=== PATIENT | female | born 1940 | race Two or more races ===

== ENCOUNTER 2024-08-28 15:53 | Inpatient (IN) | payer OTHER ==
[~2024-08-28] VITALS: Ht 152.4 cm; Wt 48.5 kg
[2024-08-28 17:05] LABS: Basophils # (auto) 0.1 10 ^3/uL (0-0.2); Basophils % (auto) 0.7 % (0.0-2.0); Eosinophils # (auto) 0 10 ^3/uL (0-0.8); Eosinophils % (auto) 0.2 % (0.0-7.0); Hematocrit 28.6 % (36.0-46.0); Hemoglobin 9.4 g/dL (12.2-16.2); Lymphocytes # (auto) 1.3 10 ^3/uL (0.4-5.4); Lymphocytes % (auto) 10.8 % (10.0-50.0); Mean Corpuscular Hemoglobin 31.5 pg (28.0-32.0); Mean Corpuscular Volume 95.5 fL (80.0-100.0); Monocytes # (auto) 0.9 10 ^3/uL (0-1.3); Monocytes % (auto) 7.6 % (0.0-12.0); Neutrophils # (auto) 9.8 10 ^3/uL (1.6-8.6); Neutrophils % (auto) 80.7 % (37.0-80.0); Nucleated Red Blood Cells % 0.1 %; Platelet Count (auto) 411 10^3/uL (140-450); Red Blood Cells 2.99 10^6/uL (4.0-5.20); Red Cell Distribution Width 14.8 % (11.8-14.3); White Blood Cell 12.1 10^3/uL (4.4-10.8)
[2024-08-28 17:22] LABS: Alanine Aminotransferase 34 U/L (7-40); Alkaline Phosphatase 79 U/L (46-116); Anion Gap 13 (5-15); Aspartate Aminotransferase 29 U/L (<34); BUN/Creatinine Ratio 22.8 (10.0-20.0); Blood Urea Nitrogen 18 mg/dL (9-23); Calcium 9.7 mg/dL (8.7-10.4); Carbon Dioxide 23 mmol/L (20-31); Chloride 102 mmol/L (98-107); Potassium 3.6 mmol/L (3.5-5.1); Sodium 138 mmol/L (136-145); Total Protein 7.7 g/dL (5.7-8.2)
[2024-08-28 17:23] LABS: Bilirubin, Total 0.4 mg/dL (0.2-1.0)
[2024-08-28 17:25] LABS: Albumin 4.9 g/dL (3.2-4.8); Glucose 115 mg/dL (74-106)
--- NOTE | 2024-08-28 17:25 | DVH ---
CHEST RADIOGRAPH Indication: tachycardia Technique: Single frontal view of the chest was obtained Comparison: None FINDINGS: Lines and Tubes: None Lungs: No focal consolidation. Pleura: No effusion. No pneumothorax. Cardiomediastinal contours: Unremarkable Bones: No acute osseous abnormality. IMPRESSION: 1. No acute cardiopulmonary disease. HS:Y
--- NOTE | 2024-08-28 17:42 | ED.PDOC ---
History of Present Illness HPI Comments 83 years old presents with 2 days of generally feeling unwell. Patient went to her primary care doctor's appointment today and was told she is tachycardic and has a fever. Patient was then sent to the emergency room. Patient reports feeling weak with palpitations and occasional cough. Chief Complaint: General Weakness Time Seen by MD: 15:55 Primary Care Provider: DR RONDON Allergies: Coded Allergies: NO KNOWN ALLERGIES (Unverified , 12/24/13) Mode of Arrival: Ambulatory Past Medical History PAST MEDICAL HISTORY: Denies Surgical History: BTL, Cholecystectomy, SOLDERER TORCH History: No Pertinent SOLDERER TORCH History Family History Family History: Unobtainable Social History Smoker: Non-Smoker Alcohol: Denies ETOH Use Drugs: Denies Drug Use Lives In: Home Physical Exam General Appearance: No Apparent Distress HEENT: Pharynx Normal Neck: Normal Inspection Respiratory: No Respiratory Distress Cardiovascular: Tachycardia Breast Exam: Deferred Gastrointestinal: Non Tender Genitalia: Deferred Pelvic: Deferred Rectal: Deferred Extremities: Non-tender Neurologic: No Motor Deficits Cerebellar Function: NOT DONE Reflexes: NOT DONE Skin: Normal Color Lymphatic: NOT DONE Was a procedure done? Was a procedure done?: No Differential Dx Considerations may include: ACS, viral syndrome, urinary tract infection, pneumonia X-Ray, Labs, Meds, VS Vital Signs Date Time Temp Pulse Resp B/P (MAP) Pulse Ox O2 Delivery O2 Flow Rate FiO2 08/28/24 16:29 98.0 107 16 141/57 (85) 94 98.0 08/28/24 16:19 99 Lab Test 08/28/24 17:37 08/28/24 16:47 08/28/24 16:15 Range/Units Urine Color Dark-yellow Yellow Urine Clarity Turbid H Clear Urine pH 5.5 5.0-9.0 Urine Specific [place] 1.026 1.001-1.035 Urine Protein Trace H Negative Urine Ketones Negative Negative Urine Blood 1+ H Negative /uL Urine Nitrite 2+ H Negative Urine Bilirubin Negative Negative Urine Urobilinogen Normal Negative mg/dL Urine Leukocyte Esterase 2+ Negative /uL Urine RBC 6 0 - 4 /hpf Urine Microscopic WBC 83 H 0-5 /HPF Urine Squamous Epithelial Cells None seen <5 /hpf Urine Bacteria Few H None Seen /hpf Urine Mucus Few None Seen Urine Glucose Normal Normal mg/dL White Blood Count 12.1 H 4.4-10.8 10^3/uL Red Blood Count 2.99 L 4.0-5.20 10^6/uL Hemoglobin 9.4 L 12.2-16.2 g/dL Hematocrit 28.6 L 36.0-46.0 % Mean Corpuscular Volume 95.5 80.0-100.0 fL Mean Corpuscular Hemoglobin 31.5 28.0-32.0 pg Mean Corpuscular Hemoglobin Concent 33.0 32.0-36.0 g/dL Red Cell Distribution Width 14.8 H 11.8-14.3 % Platelet Count 411 140-450 10^3/uL Mean Platelet Volume 7.2 6.9-10.8 fL Neutrophils (%) (Auto) 80.7 H 37.0-80.0 % Lymphocytes (%) (Auto) 10.8 10.0-50.0 % Monocytes (%) (Auto) 7.6 0.0-12.0 % Eosinophils (%) (Auto) 0.2 0.0-7.0 % Basophils (%) (Auto) 0.7 0.0-2.0 % Neutrophils # (Auto) 9.8 H 1.6-8.6 10 ^3/uL Lymphocytes # (Auto) 1.3 0.4-5.4 10 ^3/uL Monocytes # (Auto) 0.9 0-1.3 10 ^3/uL Eosinophils # (Auto) 0 0-0.8 10 ^3/uL Basophils # (Auto) 0.1 0-0.2 10 ^3/uL Nucleated Red Blood Cells 0.1 % Sodium Level 138 136-145 mmol/L Potassium Level 3.6 3.5-5.1 mmol/L Chloride Level 102 98-107 mmol/L Carbon Dioxide Level 23 20-31 mmol/L Anion Gap 13 5-15 Blood Urea Nitrogen 18 9-23 mg/dL Creatinine 0.79 0.550-1.02 mg/dL Glomerular Filtration Rate Calc 74 >90 mL/min BUN/Creatinine Ratio 22.8 H 10.0-20.0 Serum Glucose 115 H 74-106 mg/dL Lactic Acid Level 3.0 *H 0.4-2.0 mmol/L Calcium Level 9.7 8.7-10.4 mg/dL Total Bilirubin 0.4 0.2-1.0 mg/dL Aspartate Amino Transferase (AST) 29 <34 U/L Alanine Aminotransferase (ALT) 34 7-40 U/L Alkaline Phosphatase 79 46-116 U/L Troponin I High Sensitivity 4 </=34 ng/L Total Protein 7.7 5.7-8.2 g/dL Albumin 4.9 H 3.2-4.8 g/dL POC Glucose 117 H 70-106 mg/dl Time of 1ST Reevaluation: 17:41 Reevaluation 1ST: Improved Patient Education/Counseling: Diagnosis, Treatment Family Education/Counseling: No Family Present SEPSIS Sepsis Screen Date sepsis recognized/suspect: Aug 28, 2024 Time Sepsis recognized/suspect: 1621 Recent Procedure: No On Antibiotic Therapy: No Respiratory Rate >20: No Heart Rate >90: Yes Temp<36 C (96.8 F) or >38.3 C: No SBP <90 or MAP <65 mmHG: No New Acute Mental Status Change: No Is the patient on CPAP, BIPAP,: No Orders/Vitals/Labs Physician Orders Chest Portable (08/28/24 16:31) Blood Culture (08/28/24 16:31) Troponin-I Hs (08/28/24 17:31) Troponin-I Hs (08/28/24 19:31) Electrocardigram (08/28/24 16:46) Cefepime 2gm/50ml Ns (Maxipime 2gm/50ml) (08/28/24 17:45) Vancomycin 1gm/200ml Pm (08/28/24 17:45) Vital Signs Date Time Temp Pulse Resp B/P (MAP) Pulse Ox O2 Delivery O2 Flow Rate FiO2 08/28/24 16:29 98.0 107 16 141/57 (85) 94 98.0 08/28/24 16:19 99 Laboratory Tests Test 08/28/24 16:47 Lactic Acid Level 3.0 mmol/L (0.4-2.0) *H White Blood Count 12.1 10^3/uL (4.4-10.8) H Departure 1 Departure Time of Disposition: 17:41 (Patient went tachycardic and concern for sepsis. We will empirically cover patient with antibiotics. We will not give the patient a full fluid bolus as patient has some component of volume overload. We will admit patient for further workup and expert consultation) Impression: Primary Impression: Complicated urinary tract infection Additional Impressions: Tachycardia Generalized weakness Disposition: 09 ADMITTED INPATIENT Admit to: Med Surg Condition: Guarded Critical Care Note Critical Care Time?: Yes Critical care comment: Concern for sepsis Authorized and Performed by: Pauline Goyal MD Total critical care time: Approximately 42 minutes Due to a high probability of clinically significant, life threatening deterioration, the patient required my highest level of preparedness to intervene emergently and I personally spent this critical care time directly and personally managing the patient. This critical care time included obtaining a history; examining the patient; pulse oximetry; ordering and review of studies; arranging urgent treatment with development of a management plan; evaluation of patient's response to treatment; frequent reassessment; and, discussions with other providers. This critical care time was performed to assess and manage the high probability of imminent, life-threatening deterioration that could result in multi-organ failure. It was exclusive of separately billable procedures and treating other patients and teaching time. Please see my other sections and the rest of the note for further information on patient assessment and treatment. Stability Stability form required: No Heart Score Heart Score: Heart Score Response (Comments) Value History N/A 0 EKG N/A 0 Age N/A 0 Risk Factors N/A 0 Troponin N/A 0 Total 0 PAULINE GOYAL MD Aug 28, 2024 17:42
[2024-08-28 17:43] LABS: Urine Bacteria FEW /hpf (None Seen); Urine Blood 1+ /uL (Negative); Urine Clarity Turbid (Clear); Urine Color Dark-Yellow (Yellow); Urine Mucus FEW (None Seen); Urine Protein, UAD TRACE (Negative); Urine Specific Gravity 1.026 (1.001-1.035); Urine Squamous Epithelial Cell None Seen /hpf (<5); Urine Urobilinogen Normal (Negative); Urine WBC 83 /HPF (0-5); Urine pH 5.5 (5.0-9.0)
[2024-08-28 18:01] VITALS: PULSE 98; RESP 23; O2SAT 96
[2024-08-28] MEDS: CEFEPIME 2GM/50ML NS 50 ML IV ONE (18:04)
[2024-08-28] MEDS: SODIUM CHLORIDE 0.9% 1,000 ML IV ONE (18:05)
[2024-08-28] MEDS ORDERED: VANCOMYCIN PER PHARMACY 0 MG IV SCH (18:30)
[2024-08-28] MEDS ORDERED: ONDANSETRON HCL 4 MG/2 ML VIAL IV PRN (18:30)
[2024-08-28] MEDS ORDERED: DOCUSATE SOD 100 MG CAP PO PRN (18:30)
[2024-08-28] MEDS ORDERED: HYDROcodone-ACET 5/325MG TAB PO PRN (18:30)
[2024-08-28] MEDS: VANCOMYCIN 1GM/200ML PM 200 ML IV ONE (18:38)
[2024-08-28] MEDS ORDERED: MORPHINE SULFATE INJ 2 MG/ml SYRG IV PRN (18:45)
[2024-08-28] MEDS ORDERED: NITROGLYCERIN 0.4 MG SL TAB SL PRN (18:45)
--- NOTE | 2024-08-28 18:46 | DVHHP2 ---
History of Present Illness Reason for Visit: Generalized weakness History of Present Illness The patient is a 83-year-old female with past medical history of cholecystitis who presented to [facility] ED with complaint of generalized weakness. Patient reports she went to her primary care doctor's appointment today and was told she is tachycardic and has a fever. Patient was then sent to the emergency room. Patient also reports feeling weak with palpitations and occasional cough. Patient was seen and evaluated in the ED, laboratory data shows WBC 12.1, hemoglobin 9.4, hematocrit 28.6, platelets 411, sodium 138, potassium 3.6, BUN 18, creatinine 0.79, glucose 115, calcium 9.7, albumin 4.9, troponin 4, lactic acid 3.0, blood pressure 133/59, heart rate 98, temperature 99.1 F, O2 saturation 96% on room air. Chest x-ray show no acute cardiopulmonary disease, urinalysis positive for urinary tract infection. Patient was started on IV antibiotic regimen Rocephin, please see medication orders section in the computer. On my assessment, patient denied chest pain, no headache, no dizziness, no shortness of breath, no diaphoresis, no nausea, no vomiting, no chills. Patient was admitted for further evaluation and medical management. Past Medical History Cholecystitis Past Surgical History BTL, Cholecystectomy, Family History Reviewed, noncontributory to the management of this case. Past Social History The patient lives at home, denies smoking, alcohol or illicit drugs abuse. Review of Systems Constitutional: Yes: Fever, Weakness; No: Chills, Sweats, Malaise, Other Eyes: No: Pain, Vision change, Conjunctivae inflammation, Eyelid inflammation, Other, Redness ENT: No: Ear pain, Ear discharge, Nose pain, Nose discharge, Nose congestion, Mouth pain, Mouth swelling, Throat pain, Throat swelling, Other Respiratory: No: Cough, Dry, Shortness of breath, SOB with excertion, Wheezing, Hemoptysis, Pleuritic Pain, Sputum, Wheezing, Other Cardiovascular: No: Chest Pain, Palpitations, Orthopnea, Paroxysmal Noc. Dyspnea, Edema, Lt Headedness, Other Gastrointestinal: No: Nausea, Vomiting, Abdominal Pain, Diarrhea, Constipation, Melena, Hematochezia, Other Genitourinary: No Dysuria, No Frequency, No Incontinence, No Hematuria, No Retention, No Other Musculoskeletal: No: other, neck pain, shoulder pain, arm pain, back pain, hand pain, leg pain, foot pain Skin: No: Rash, Lesions, Jaundice, Bruising, Other Neurological: No: Weakness, Numbness, Incoordination, Change in speech, Confusion, Seizures, Other Allergies: Coded Allergies: NO KNOWN ALLERGIES (Unverified , 12/24/13) Medications Current Medications Medications Dose Ordered Sig/Taj Route Start Time Stop Time Status Last Admin Dose Admin Ceftriaxone Sodium 50 ml @ 100 mls/hr DAILY@09 IV 08/29/24 09:00 Vancomycin HCl 0 ml @ 0 mls/hr UD IV 08/28/24 18:30 UNV Sodium Chloride 1,000 ml @ 60 mls/hr [id number] IV 08/28/24 18:30 Acetaminophen/ Hydrocodone Bitart 1 tab Q4HP PRN PO 08/28/24 18:30 Ondansetron HCl 4 mg Q4HP PRN IV 08/28/24 18:30 Docusate Sodium 100 mg BIDPRN PRN PO 08/28/24 18:30 Acetaminophen 650 mg Q6HP PRN PO 08/28/24 18:30 Exam Vital Signs Vital Signs Date Time Temp Pulse Resp B/P (MAP) Pulse Ox O2 Delivery O2 Flow Rate FiO2 08/28/24 18:01 98 23 96 Room Air* 0 21 08/28/24 18:01 99.1 133/59 (83) 99.1 General Appearance: Alert, Oriented X3, Cooperative, No acute distress HEENT: Atraumatic, PERRLA, EOMI, Mucous membr. moist/pink Respiratory: Normal air movement Cardiovascular: Regular rate, Normal S1, Normal S2, No murmurs Abdominal: Normal bowel sounds, Soft, No tenderness, No hepatospenomegaly, No masses Extremities: No clubbing, No cyanosis, No edema, Normal pulses, No tenderness/swelling Skin: No rashes, No breakdown, No significant lesion Neuro: Normal speech, Normal tone, Sensation intact, Cranial nerves 3-12 NL, Reflexes 2+, Other (Generalized weakness) Psych/Mental Status: Mental status NL, Mood NL Labs/Xrays Labs Test 08/28/24 18:14 08/28/24 17:37 08/28/24 16:47 08/28/24 16:15 Range/Units Urine Color Dark-yellow Yellow Urine Clarity Turbid H Clear Urine pH 5.5 5.0-9.0 Urine Specific [place] 1.026 1.001-1.035 Urine Protein Trace H Negative Urine Ketones Negative Negative Urine Blood 1+ H Negative /uL Urine Nitrite 2+ H Negative Urine Bilirubin Negative Negative Urine Urobilinogen Normal Negative mg/dL Urine Leukocyte Esterase 2+ Negative /uL Urine RBC 6 0 - 4 /hpf Urine Microscopic WBC 83 H 0-5 /HPF Urine Squamous Epithelial Cells None seen <5 /hpf Urine Bacteria Few H None Seen /hpf Urine Mucus Few None Seen Urine Glucose Normal Normal mg/dL White Blood Count 12.1 H 4.4-10.8 10^3/uL Red Blood Count 2.99 L 4.0-5.20 10^6/uL Hemoglobin 9.4 L 12.2-16.2 g/dL Hematocrit 28.6 L 36.0-46.0 % Mean Corpuscular Volume 95.5 80.0-100.0 fL Mean Corpuscular Hemoglobin 31.5 28.0-32.0 pg Mean Corpuscular Hemoglobin Concent 33.0 32.0-36.0 g/dL Red Cell Distribution Width 14.8 H 11.8-14.3 % Platelet Count 411 140-450 10^3/uL Mean Platelet Volume 7.2 6.9-10.8 fL Neutrophils (%) (Auto) 80.7 H 37.0-80.0 % Lymphocytes (%) (Auto) 10.8 10.0-50.0 % Monocytes (%) (Auto) 7.6 0.0-12.0 % Eosinophils (%) (Auto) 0.2 0.0-7.0 % Basophils (%) (Auto) 0.7 0.0-2.0 % Neutrophils # (Auto) 9.8 H 1.6-8.6 10 ^3/uL Lymphocytes # (Auto) 1.3 0.4-5.4 10 ^3/uL Monocytes # (Auto) 0.9 0-1.3 10 ^3/uL Eosinophils # (Auto) 0 0-0.8 10 ^3/uL Basophils # (Auto) 0.1 0-0.2 10 ^3/uL Nucleated Red Blood Cells 0.1 % Sodium Level 138 136-145 mmol/L Potassium Level 3.6 3.5-5.1 mmol/L Chloride Level 102 98-107 mmol/L Carbon Dioxide Level 23 20-31 mmol/L Anion Gap 13 5-15 Blood Urea Nitrogen 18 9-23 mg/dL Creatinine 0.79 0.550-1.02 mg/dL Glomerular Filtration Rate Calc 74 >90 mL/min BUN/Creatinine Ratio 22.8 H 10.0-20.0 Serum Glucose 115 H 74-106 mg/dL Calcium Level 9.7 8.7-10.4 mg/dL Total Bilirubin 0.4 0.2-1.0 mg/dL Aspartate Amino Transferase (AST) 29 <34 U/L Alanine Aminotransferase (ALT) 34 7-40 U/L Alkaline Phosphatase 79 46-116 U/L Total Protein 7.7 5.7-8.2 g/dL Albumin 4.9 H 3.2-4.8 g/dL POC Glucose 117 H 70-106 mg/dl PATIENT: DENNIS GIRON ACCT: [id number] UNIT: [id number] : 1940 LOC: ER ROOM / BED: / AGE / SEX: 83 / F ADM STATUS: REG ER SERVICE 1631 ORDERING PHYSICIAN: PAULINE GALINDO MD PROCEDURE(s): CXRP - CHEST PORTABLE REASON: tachycardia ORDER NUMBER(s): [id number], ACCESSION NUMBER(s): [id number] CHEST RADIOGRAPH Indication: tachycardia Technique: Single frontal view of the chest was obtained Comparison: None FINDINGS: Lines and Tubes: None Lungs: No focal consolidation. Pleura: No effusion. No pneumothorax. Cardiomediastinal contours: Unremarkable Bones: No acute osseous abnormality. IMPRESSION: 1. No acute cardiopulmonary disease. Assessment/Plan Assessment/Plan Complicated urinary tract infection Tachycardia Sepsis, unspecified organism Generalized weakness Plan 1. Admit to telemetry unit 2. Breathing treatment 3. Pain control management 4. IV antibiotic management 5. Management of fluids and electrolytes 6. Consultation for hospitalist 7. Diagnostic test chest x-ray 8. DVT prophylaxis-on SCDs 9. Repeat labs CBC, CMP in a.m. 10. Home medication reviewed and reconciled 11. Continue with current medical management 12. Treatment plan discussed with patient and RN. Patient verbalized understanding. Plan discussed with: Patient, Other (RN) My Orders Orders - DUNIA FOX DNP Procedure Category Date Status Time Urine Bacterial FLORIAN 08/28/24 In Process Culture 18:23 Ceftriaxone 1gm/50ml PHA 08/29/24 In Process D5w (Rocephin) 09:00 Vancomycin Per PHA 08/28/24 Logged Pharmacy 18:30 Allergies TOÑA 08/28/24 In Process 18:23 Code Status CODE 08/28/24 Transmitted 18:23 Sodium Chloride 0.9% PHA 08/28/24 In Process 18:30 Oxygen Per Hour RT 08/28/24 Transmitted 18:23 Hydrocodone-Acet PHA 08/28/24 In Process 5/325mg Tab ([place] 18:30 Ondansetron Hcl PHA 08/28/24 In Process (Zofran) 18:30 Docusate Sodium PHA 08/28/24 In Process Capsule (Colace 18:30 Fall Risk Precautions TOÑA 08/28/[address] 18:23 Complete Blood Count LAB 08/29/24 Verified 04:00 Comprehensive LAB 08/29/24 Verified Metabolic Panel 04:00 Cardiac DIET 08/28/24 Transmitted Diet-2gna,Lofat,Lochol Dinner Condition: Serious TOÑA 08/28/24 In Process 18:23 Acetaminophen Tablet PHA 08/28/24 In Process (Tylenol Tablet) 18:30 Maintain Bed Rest TOÑA 08/28/24 In Process 18:23 Sequential TOÑA 08/28/24 In Process Compression Device Admit ADMIT 08/28/24 Verified 18:45 Nitroglycerin PHA 08/28/24 Verified Sublingual (Ntrostat 18:45 Morphine Sulfate PHA 08/28/24 Verified Injection 18:45 Stat Ekg For Chest TOÑA 08/28/24 Verified Pain 18:45 Notify Md Of Changes TOÑA 08/28/24 Verified From Base 18:45 Delivery Architect For TOÑA 08/28/24 Verified 24 Hours 18:45 Emergency Dysrhythmia TOÑA 08/28/24 Verified Protocol 18:45 Rhythm Strips Once TOÑA 08/28/24 Verified Every Shift 18:45 Oxygen By Nasal RT 08/28/24 Verified Cannula 18:45 Problem List: (1) Complicated urinary tract infection (2) Tachycardia (3) Sepsis, unspecified organism (4) Generalized weakness Date of Service: Aug 28, 2024 Billing Provider: DUNIA FOX DNP Common Visit Codes: [id number] INP/OBS CARE (HIGH) DUNIA FOX DNP Aug 28, 2024 18:46
[2024-08-28] MEDS: SODIUM CHLORIDE 0.9% 1,000 ML IV SCH (18:56)
[2024-08-28 19:31] VITALS: PULSE 105; RESP 23; O2SAT 96
[2024-08-28] MEDS: VANCOMYCIN 750mg/150ml 150 ML IV ONE (20:19)
[2024-08-28 20:45] VITALS: BP 127/67; PULSE 98; RESP 16; RESP 18; TEMP 99.2; O2SAT 96; O2SAT 97
[2024-08-28 21:28] VITALS: BP 127/67; PULSE 98; RESP 16; TEMP 99.2; O2SAT 96
[2024-08-29] VITALS (9 sets, daily range): BP systolic 99–128; BP diastolic 47–68; PULSE 67–88; RESP 16–20; TEMP 98.5–101; O2SAT 93–100
[2024-08-29 06:47] LABS: Basophils # (auto) 0.1 10 ^3/uL (0-0.2); Eosinophils # (auto) 0.1 10 ^3/uL (0-0.8); Hematocrit 20.9 % (36.0-46.0); Lymphocytes # (auto) 1.2 10 ^3/uL (0.4-5.4); Monocytes # (auto) 0.6 10 ^3/uL (0-1.3); Nucleated Red Blood Cells % 0.1 %; Red Cell Distribution Width 14.3 % (11.8-14.3); White Blood Cell 7.8 10^3/uL (4.4-10.8)
[2024-08-29 06:50] LABS: Basophils % (auto) 0.9 % (0.0-2.0); Eosinophils % (auto) 1.4 % (0.0-7.0); Hemoglobin 7.1 g/dL (12.2-16.2); Mean Corpuscular Hemoglobin 31.9 pg (28.0-32.0); Monocytes % (auto) 7.6 % (0.0-12.0); Neutrophils # (auto) 5.8 10 ^3/uL (1.6-8.6); Neutrophils % (auto) 75.1 % (37.0-80.0); Platelet Count (auto) 283 10^3/uL (140-450); Red Blood Cells 2.23 10^6/uL (4.0-5.20)
[2024-08-29 07:06] LABS: Alanine Aminotransferase 25 U/L (7-40); Albumin 3.3 g/dL (3.2-4.8); Alkaline Phosphatase 54 U/L (46-116); Anion Gap 8 (5-15); Aspartate Aminotransferase 20 U/L (<34); BUN/Creatinine Ratio 20.3 (10.0-20.0); Blood Urea Nitrogen 12 mg/dL (9-23); Carbon Dioxide 22 mmol/L (20-31); Chloride 106 mmol/L (98-107); Glucose 89 mg/dL (74-106); Potassium 3.9 mmol/L (3.5-5.1); Sodium 136 mmol/L (136-145)
[2024-08-29 07:07] LABS: Bilirubin, Total 0.6 mg/dL (0.2-1.0)
[2024-08-29 07:11] LABS: Calcium 7.7 mg/dL (8.7-10.4); Total Protein 5.3 g/dL (5.7-8.2)
[2024-08-29] MEDS: ACETAMINOPHEN 325 MG TAB PO PRN (09:08)
[2024-08-29] MEDS: cefTRIAXone 1GM/50ML D5W 50 ML IV SCH (09:08)
--- NOTE | 2024-08-29 13:42 | ECG ---
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
[2024-08-29] MEDS: VANCOMYCIN 500mg/100mL 100 ML IV ONE (14:27)
--- NOTE | 2024-08-29 21:18 | DVHPN2 ---
Reviewed: Care Plan Eyes: No Pain, No Vision change, No Conjunctivae inflammation, No Eyelid inflammation, No Other, No Redness ENT: No Ear pain, No Ear discharge, No Nose pain, No Nose discharge, No Nose congestion, No Mouth pain, No Mouth swelling, No Throat pain, No Throat swelling, No Other Cardiovascular: No Chest Pain, No Palpitations, No Orthopnea, No Paroxysmal Noc. Dyspnea, No Edema, No Lt Headedness, No Other Respiratory: No Cough, No Dry, No Shortness of breath, No SOB with excertion, No Wheezing, No Hemoptysis, No Pleuritic Pain, No Sputum, No Other Gastrointestinal: No Nausea, No Vomiting, No Abdominal Pain, No Diarrhea, No Constipation, No Melena, No Hematochezia, No Other Genitourinary: No Dysuria, No Frequency, No Incontinence, No Hematuria, No Retention, No Other Musculoskeletal: No other, No neck pain, No shoulder pain, No arm pain, No back pain, No hand pain, No leg pain, No foot pain Skin: No Rash, No Lesions, No Jaundice, No Bruising, No Other Objective Vitals Vital Signs Date Time Temp Pulse Resp B/P (MAP) Pulse Ox O2 Delivery O2 Flow Rate FiO2 08/29/24 21:00 101.0 87 18 128/68 (88) 93 101.0 08/29/24 07:30 Room Air* 0 21 Intake/Output Intake and Output 08/29/24 07:00 Intake Total 1510 ml Balance 1510 ml Intake Oral 200 ml IV Total 1310 ml # Voids 2 Medications Current Medications Medications Dose Ordered Sig/Taj Route Start Time Stop Time Status Last Admin Dose Admin Ceftriaxone Sodium 50 ml @ 100 mls/hr DAILY@09 IV 08/29/24 09:00 08/29/24 09:08 Vancomycin HCl 0 ml @ 0 mls/hr UD IV 08/28/24 18:30 Sodium Chloride 1,000 ml @ 60 mls/hr [id number] IV 08/28/24 18:30 08/29/24 16:48 Acetaminophen/ Hydrocodone Bitart 1 tab Q4HP PRN PO 08/28/24 18:30 Ondansetron HCl 4 mg Q4HP PRN IV 08/28/24 18:30 Docusate Sodium 100 mg BIDPRN PRN PO 6/17/25 18:30 Acetaminophen 650 mg Q6HP PRN PO 08/28/24 18:30 08/29/24 09:08 Nitroglycerin 0.4 mg Q5MINP PRN SL 08/28/24 18:45 Morphine Sulfate 2 mg Q30M PRN IV 08/28/24 18:45 Laboratory Results Laboratory Tests 08/29/24 06:26 Chemistry Test 08/29/24 06:26 Albumin 3.3 g/dL (3.2-4.8) Calcium Level 7.7 mg/dL (8.7-10.4) L Total Protein 5.3 g/dL (5.7-8.2) L LFT Test 08/29/24 06:26 Alanine Aminotransferase (ALT) 25 U/L (7-40) Alkaline Phosphatase 54 U/L (46-116) Aspartate Amino Transferase (AST) 20 U/L (<34) Total Bilirubin 0.6 mg/dL (0.2-1.0) Urinalysis Test 08/28/24 17:37 Urine Color Dark-yellow (Yellow) Urine Clarity Turbid (Clear) H Urine pH 5.5 (5.0-9.0) Urine Specific [place] 1.026 (1.001-1.035) Urine Protein Trace (Negative) H Urine Ketones Negative (Negative) Urine Blood 1+ /uL (Negative) H Urine Nitrite 2+ (Negative) H Urine Bilirubin Negative (Negative) Urine Urobilinogen Normal mg/dL (Negative) Urine Leukocyte Esterase 2+ /uL (Negative) Urine RBC 6 /hpf (0 - 4) Urine Microscopic WBC 83 /HPF (0-5) H Urine Squamous Epithelial Cells None seen /hpf (<5) Urine Bacteria Few /hpf (None Seen) H Urine Mucus Few (None Seen) Urine Glucose Normal mg/dL (Normal) Microbiology Microbiology Date/Time Source Procedure Growth Status 08/28/24 17:37 Voided Urine Urine Culture - Preliminary Resulted 08/28/24 16:47 Blood Blood Culture - Preliminary NO GROWTH AFTER 24 HOURS OF INCUBATION. Resulted Assessment/Plan Assessment/Plan The patient is a 83-year-old female with past medical history of cholecystitis who presented to [facility] ED with complaint of generalized weakness. Patient reports she went to her primary care doctor's appointment today and was told she is tachycardic and has a fever. Patient was then sent to the emergency room. Patient also reports feeling weak with palpitations and occasional cough. Patient was seen and evaluated in the ED, laboratory data shows WBC 12.1, hemoglobin 9.4, hematocrit 28.6, platelets 411, sodium 138, potassium 3.6, BUN 18, creatinine 0.79, glucose 115, calcium 9.7, albumin 4.9, troponin 4, lactic acid 3.0, blood pressure 133/59, heart rate 98, temperature 99.1 F, O2 saturation 96% on room air. Chest x-ray show no acute cardiopulmonary disease, urinalysis positive for urinary tract infection. Patient was started on IV antibiotic regimen Rocephin, please see medication orders section in the computer. On my assessment, patient denied chest pain, no headache, no dizziness, no shortness of breath, no diaphoresis, no nausea, no vomiting, no chills. Patient was admitted for further evaluation and medical management. SHERRON POP DO Aug 29, 2024 21:18
[2024-08-30] VITALS (9 sets, daily range): BP systolic 95–142; BP diastolic 51–65; PULSE 73–90; RESP 17–19; TEMP 97.8–100.4; O2SAT 92–97
[2024-08-30 10:18] LABS: Basophils # (auto) 0 10 ^3/uL (0-0.2); Basophils % (auto) 0.6 % (0.0-2.0); Eosinophils # (auto) 0.1 10 ^3/uL (0-0.8); Eosinophils % (auto) 1.5 % (0.0-7.0); Hematocrit 23.5 % (36.0-46.0); Hemoglobin 7.9 g/dL (12.2-16.2); Lymphocytes # (auto) 1.4 10 ^3/uL (0.4-5.4); Mean Corpuscular Hemoglobin 31.9 pg (28.0-32.0); Mean Corpuscular Hgb Conc. 33.5 g/dL (32.0-36.0); Mean Corpuscular Volume 95.2 fL (80.0-100.0); Monocytes # (auto) 0.6 10 ^3/uL (0-1.3); Monocytes % (auto) 9.1 % (0.0-12.0); Neutrophils # (auto) 4.7 10 ^3/uL (1.6-8.6); Neutrophils % (auto) 68.8 % (37.0-80.0); Nucleated Red Blood Cells % 0.2 %; Platelet Count (auto) 311 10^3/uL (140-450); Red Blood Cells 2.47 10^6/uL (4.0-5.20); Red Cell Distribution Width 14.6 % (11.8-14.3); White Blood Cell 6.9 10^3/uL (4.4-10.8)
[2024-08-30 10:32] LABS: Alanine Aminotransferase 37 U/L (7-40); Albumin 3.6 g/dL (3.2-4.8); Alkaline Phosphatase 63 U/L (46-116); Anion Gap 10 (5-15); Aspartate Aminotransferase 31 U/L (<34); BUN/Creatinine Ratio 14.1 (10.0-20.0); Blood Urea Nitrogen 9 mg/dL (9-23); Carbon Dioxide 23 mmol/L (20-31); Glucose 90 mg/dL (74-106); Potassium 3.6 mmol/L (3.5-5.1); Sodium 141 mmol/L (136-145); Total Protein 5.8 g/dL (5.7-8.2)
[2024-08-30 10:33] LABS: Bilirubin, Total 0.3 mg/dL (0.2-1.0)
[2024-08-30 10:35] LABS: Calcium 8.5 mg/dL (8.7-10.4); Chloride 108 mmol/L (98-107)
[2024-08-30] MEDS: VANCOMYCIN 750MG KIT 100 ML IV SCH (12:50)
--- NOTE | 2024-08-30 14:37 | DVHINCON2 ---
GI Consult Consult Note GI consult note Date of Consultation: 08/30/2024 Chief Complaint: Hemoglobin 7.1 Referring Physician: Dr. Thomas H&P: 83-year-old female presented to ER with complains of generalized weakness. Also complaining of tachycardia and a fever. Patient only complains of occasional abdominal pain when she has coughing. No nausea or vomiting. Denies hematemesis. Last bowel movement this a.m.. Denies melena or red blood in stool. Denies taking blood thinners. No EGD or colonoscopy in past. Patient admits to having a history of anemia in past Past Medical History: Anemia Past Surgical History: Cholecystectomy, BTL, Social History: NO smoking, drinking ETOH and use of illegal drugs. Family History: Noncontributory Review of Systems: Constitutional: no fever, chill, weight loss HEENT: no eye pain, no hearing loss, no oral lesion, no scleral icterus Heart: no chest pain, no chest pressure Lung: no cough, no dyspnea with exertion Abdomen: see HPI Physical exam: General: NAD, AAOX3 Chest: lung boateng clear to auscultation Heart: RRR, no murmur Abdomen: non-distended, no tenderness to palpation, +BS Labs: Labs Test 08/30/24 13:35 08/30/24 05:22 08/28/24 21:26 08/28/24 19:58 Range/Units White Blood Count 6.9 4.4-10.8 10^3/uL Red Blood Count 2.47 L 4.0-5.20 10^6/uL Hemoglobin 7.9 L 12.2-16.2 g/dL Hematocrit 23.5 #L 36.0-46.0 % Mean Corpuscular Volume 95.2 80.0-100.0 fL Mean Corpuscular Hemoglobin 31.9 28.0-32.0 pg Mean Corpuscular Hemoglobin Concent 33.5 32.0-36.0 g/dL Red Cell Distribution Width 14.6 H 11.8-14.3 % Platelet Count 311 140-450 10^3/uL Mean Platelet Volume 7.9 6.9-10.8 fL Neutrophils (%) (Auto) 68.8 37.0-80.0 % Lymphocytes (%) (Auto) 20.0 10.0-50.0 % Monocytes (%) (Auto) 9.1 0.0-12.0 % Eosinophils (%) (Auto) 1.5 0.0-7.0 % Basophils (%) (Auto) 0.6 0.0-2.0 % Neutrophils # (Auto) 4.7 1.6-8.6 10 ^3/uL Lymphocytes # (Auto) 1.4 0.4-5.4 10 ^3/uL Monocytes # (Auto) 0.6 0-1.3 10 ^3/uL Eosinophils # (Auto) 0.1 0-0.8 10 ^3/uL Basophils # (Auto) 0 0-0.2 10 ^3/uL Nucleated Red Blood Cells 0.2 % Sodium Level 141 # 136-145 mmol/L Potassium Level 3.6 3.5-5.1 mmol/L Chloride Level 108 H 98-107 mmol/L Carbon Dioxide Level 23 20-31 mmol/L Anion Gap 10 5-15 Blood Urea Nitrogen 9 9-23 mg/dL Creatinine 0.64 0.550-1.02 mg/dL Glomerular Filtration Rate Calc 87 >90 mL/min BUN/Creatinine Ratio 14.1 10.0-20.0 Serum Glucose 90 74-106 mg/dL Calcium Level 8.5 L 8.7-10.4 mg/dL Total Bilirubin 0.3 0.2-1.0 mg/dL Aspartate Amino Transferase (AST) 31 <34 U/L Alanine Aminotransferase (ALT) 37 7-40 U/L Alkaline Phosphatase 63 46-116 U/L Total Protein 5.8 5.7-8.2 g/dL Albumin 3.6 3.2-4.8 g/dL Random Vancomycin Level 6.7 5-10 ug/mL Lactic Acid Level 0.9 0.4-2.0 mmol/L Troponin I High Sensitivity 29 </=34 ng/L Test 08/28/24 17:37 08/28/24 16:15 Range/Units Urine Color Dark-yellow Yellow Urine Clarity Turbid H Clear Urine pH 5.5 5.0-9.0 Urine Specific [place] 1.026 1.001-1.035 Urine Protein Trace H Negative Urine Ketones Negative Negative Urine Blood 1+ H Negative /uL Urine Nitrite 2+ H Negative Urine Bilirubin Negative Negative Urine Urobilinogen Normal Negative mg/dL Urine Leukocyte Esterase 2+ Negative /uL Urine RBC 6 0 - 4 /hpf Urine Microscopic WBC 83 H 0-5 /HPF Urine Squamous Epithelial Cells None seen <5 /hpf Urine Bacteria Few H None Seen /hpf Urine Mucus Few None Seen Urine Glucose Normal Normal mg/dL POC Glucose 117 H 70-106 mg/dl Microbiology Date/Time Source Procedure Growth Status 08/28/24 17:37 Voided Urine Urine Culture - Final Escherichia coli Complete 08/28/24 16:47 Blood Blood Culture - Preliminary NO GROWTH AFTER 24 HOURS OF INCUBATION. Resulted Imaging: Assessment: Symptomatic anemia Sepsis UTI Plan: Discussed with Dr. Barron Buck for occult blood Monitor labs Discussed possible GI procedures of EGD and colonoscopy, extensively with patient. At this time patient does not want to have these procedures done We will continue to follow patient Thank you for this consult Date of Service: Aug 30, 2024 Billing Provider: SUNDEEP NICKERSON Common Visit Codes: CONSULT ONLY Consultation Codes: [id number] CONSULT <60MIN SUNDEEP NICKERSON Aug 30, 2024 14:37
[2024-08-30] MEDS ORDERED: VANCOMYCIN 750MG KIT 100 ML IV SCH (15:00)
[2024-08-30] MEDS ORDERED: VANCOMYCIN 500mg/100mL 100 ML IV SCH (15:00)
--- NOTE | 2024-08-30 20:20 | DVHINCON2 ---
Date of service: Aug 29, 2024 History of Present Illness The patient is a 83-year-old female with past medical history of cholecystitis who presented to [facility] ED with complaint of generalized wea kness. Patient reports she went to her primary care doctor's appointment today and was told she is tachycardic and has a fever. Patient was then sent to the emergency room. Patient also reports feeling weak with palpitations and occasional cough. Patient was seen and evaluated in the ED, laboratory data shows WBC 12.1, hemoglobin 9.4, hematocrit 28.6, platelets 411, sodium 138, potassium 3.6, BUN 18, creatinine 0.79, glucose 115, calcium 9.7, albumin 4.9, troponin 4, lactic acid 3.0, blood pressure 133/59, heart rate 98, temperature 99.1 F, O2 saturation 96% on room air. Chest x-ray show no acute cardiopulmonary disease, urinalysis positive for urinary tract infection. Patient was started on IV antibiotic regimen Rocephin, please see medication orders section in the computer. On my assessment, patient denied chest pain, no headache, no dizziness, no shortness of breath, no diaphoresis, no nausea, no vomiting, no chills. Patient was admitted for further evaluation and medical management. Family History: Patient reports no known family medical history. Allergies: Coded Allergies: NO KNOWN ALLERGIES (Unverified , 12/24/13) Home Meds Active Scripts Cephalexin (KEFLEX CAPSULE) 250 Mg Cp, 2 CAP PO BID for 5 Days, #20 CAP Prov:SHERRON POP DO 08/31/24 Current Medications Current Medications Medications (Trade) Dose Ordered Sig/Taj Route PRN Reason Start Time Stop Time Status Last Admin Vancomycin HCl 100 ml @ 100 mls/hr ONCE IV 08/30/24 15:00 Cancel Vancomycin HCl 100 ml @ 200 mls/hr Q12H IV 08/30/24 15:00 UNV Vancomycin HCl 100 ml @ 100 mls/hr Q24H IV 08/30/24 12:00 08/30/24 12:50 Review of Systems dysuria Vital Signs Vital Signs Date Time Temp Pulse Resp B/P (MAP) Pulse Ox O2 Delivery O2 Flow Rate FiO2 08/30/24 16:52 98.3 80 17 114/55 (74) 95 98.3 08/30/24 07:30 Room Air* 0 21 Labs/Diagnostic Data Labs Test 08/30/24 13:35 08/30/24 05:22 08/28/24 21:26 08/28/24 19:58 Range/Units Stool Occult Blood Negative Negative Stool Occult Blood Sample #3 Negative White Blood Count 6.9 4.4-10.8 10^3/uL Red Blood Count 2.47 L 4.0-5.20 10^6/uL Hemoglobin 7.9 L 12.2-16.2 g/dL Hematocrit 23.5 #L 36.0-46.0 % Mean Corpuscular Volume 95.2 80.0-100.0 fL Mean Corpuscular Hemoglobin 31.9 28.0-32.0 pg Mean Corpuscular Hemoglobin Concent 33.5 32.0-36.0 g/dL Red Cell Distribution Width 14.6 H 11.8-14.3 % Platelet Count 311 140-450 10^3/uL Mean Platelet Volume 7.9 6.9-10.8 fL Neutrophils (%) (Auto) 68.8 37.0-80.0 % Lymphocytes (%) (Auto) 20.0 10.0-50.0 % Monocytes (%) (Auto) 9.1 0.0-12.0 % Eosinophils (%) (Auto) 1.5 0.0-7.0 % Basophils (%) (Auto) 0.6 0.0-2.0 % Neutrophils # (Auto) 4.7 1.6-8.6 10 ^3/uL Lymphocytes # (Auto) 1.4 0.4-5.4 10 ^3/uL Monocytes # (Auto) 0.6 0-1.3 10 ^3/uL Eosinophils # (Auto) 0.1 0-0.8 10 ^3/uL Basophils # (Auto) 0 0-0.2 10 ^3/uL Nucleated Red Blood Cells 0.2 % Sodium Level 141 # 136-145 mmol/L Potassium Level 3.6 3.5-5.1 mmol/L Chloride Level 108 H 98-107 mmol/L Carbon Dioxide Level 23 20-31 mmol/L Anion Gap 10 5-15 Blood Urea Nitrogen 9 9-23 mg/dL Creatinine 0.64 0.550-1.02 mg/dL Glomerular Filtration Rate Calc 87 >90 mL/min BUN/Creatinine Ratio 14.1 10.0-20.0 Serum Glucose 90 74-106 mg/dL Calcium Level 8.5 L 8.7-10.4 mg/dL Total Bilirubin 0.3 0.2-1.0 mg/dL Aspartate Amino Transferase (AST) 31 <34 U/L Alanine Aminotransferase (ALT) 37 7-40 U/L Alkaline Phosphatase 63 46-116 U/L Total Protein 5.8 5.7-8.2 g/dL Albumin 3.6 3.2-4.8 g/dL Random Vancomycin Level 6.7 5-10 ug/mL Lactic Acid Level 0.9 0.4-2.0 mmol/L Troponin I High Sensitivity 29 </=34 ng/L Test 08/28/24 17:37 08/28/24 16:15 Range/Units Urine Color Dark-yellow Yellow Urine Clarity Turbid H Clear Urine pH 5.5 5.0-9.0 Urine Specific [place] 1.026 1.001-1.035 Urine Protein Trace H Negative Urine Ketones Negative Negative Urine Blood 1+ H Negative /uL Urine Nitrite 2+ H Negative Urine Bilirubin Negative Negative Urine Urobilinogen Normal Negative mg/dL Urine Leukocyte Esterase 2+ Negative /uL Urine RBC 6 0 - 4 /hpf Urine Microscopic WBC 83 H 0-5 /HPF Urine Squamous Epithelial Cells None seen <5 /hpf Urine Bacteria Few H None Seen /hpf Urine Mucus Few None Seen Urine Glucose Normal Normal mg/dL POC Glucose 117 H 70-106 mg/dl Microbiology Date/Time Source Procedure Growth Status 08/28/24 17:37 Voided Urine Urine Culture - Final Escherichia coli Complete 08/28/24 16:47 Blood Blood Culture - Preliminary NO GROWTH AFTER 48 HOURS OF INCUBATION. Resulted Plan/Recommendation The patient is a 83-year-old female with past medical history of cholecystitis who presented to [facility] ED with complaint of generalized weakness. Patient reports she went to her primary care doctor's appointment today and was told she is tachycardic and has a fever. Patient was then sent to the emergency room. Patient also reports feeling weak with palpitations and occasional cough. Patient was seen and evaluated in the ED, laboratory data shows WBC 12.1, hemoglobin 9.4, hematocrit 28.6, platelets 411, sodium 138, potassium 3.6, BUN 18, creatinine 0.79, glucose 115, calcium 9.7, albumin 4.9, troponin 4, lactic acid 3.0, blood pressure 133/59, heart rate 98, temperature 99.1 F, O2 saturation 96% on room air. Chest x-ray show no acute cardiopulmonary disease, urinalysis positive for urinary tract infection. Patient was started on IV antibiotic regimen Rocephin, please see medication orders section in the computer. On my assessment, patient denied chest pain, no headache, no dizziness, no shortness of breath, no diaphoresis, no nausea, no vomiting, no chills. Patient was admitted for further evaluation and medical management. sepsis with UTI tachycardia acute cystitis weakness leukocytosis Plan discussed with: Patient POPSHERRON Mendez Wade DO Aug 30, 2024 20:20
--- NOTE | 2024-08-30 21:03 | DVHPN2 ---
Progress Note Date Seen: Aug 30, 2024 Objective vital signs Vital Sign Date Time Temp Pulse Resp B/P (MAP) Pulse Ox O2 Delivery O2 Flow Rate FiO2 08/30/24 16:52 98.3 80 17 114/55 (74) 95 98.3 08/30/24 07:30 Room Air* 0 21 Total Intake and Output 08/29/24 08/29/24 08/30/24 15:00 23:00 07:00 Intake Total 50 ml 700 ml 1060 ml Balance 50 ml 700 ml 1060 ml medications Current Medications Medications Dose Ordered Sig/Taj Route Start Time Stop Time Status Last Admin Dose Admin Ceftriaxone Sodium 50 ml @ 100 mls/hr DAILY@09 IV 08/29/24 09:00 08/30/24 09:06 100 MLS/HR Vancomycin HCl 0 ml @ 0 mls/hr UD IV 08/28/24 18:30 Sodium Chloride 1,000 ml @ 60 mls/hr [id number] IV 08/28/24 18:30 08/30/24 09:12 60 MLS/HR Acetaminophen/ Hydrocodone Bitart 1 tab Q4HP PRN PO 08/28/24 18:30 Ondansetron HCl 4 mg Q4HP PRN IV 08/28/24 18:30 Docusate Sodium 100 mg BIDPRN PRN PO 08/28/24 18:30 Acetaminophen 650 mg Q6HP PRN PO 08/28/24 18:30 08/30/24 13:05 650 MG Nitroglycerin 0.4 mg Q5MINP PRN SL 08/28/24 18:45 Morphine Sulfate 2 mg Q30M PRN IV 08/28/24 18:45 Vancomycin HCl 100 ml @ 100 mls/hr ONCE IV 08/30/24 15:00 Cancel Vancomycin HCl 100 ml @ 200 mls/hr Q12H IV 08/30/24 15:00 UNV Vancomycin HCl 100 ml @ 100 mls/hr Q24H IV 08/30/24 12:00 08/30/24 12:50 100 MLS/HR laboratory and microbiology Laboratory Tests 08/30/24 05:22 Test 08/30/24 05:22 Range/Units Serum Glucose 90 74-106 mg/dL Microbiology Date/Time Source Procedure Growth Status 08/28/24 17:37 Voided Urine Urine Culture - Final Escherichia coli Complete 08/28/24 16:47 Blood Blood Culture - Preliminary NO GROWTH AFTER 48 HOURS OF INCUBATION. Resulted My Orders My Orders Orders - SHERRON POP DO Procedure Category Date Status Time * [employer] Worker CONS 08/30/24 Transmitted 10:03 SHERRON POP DO Aug 30, 2024 21:03
[2024-08-31 01:00] VITALS: BP 116/62; PULSE 81; RESP 17; TEMP 98.5; O2SAT 94
[2024-08-31 05:00] VITALS: BP 127/72; PULSE 81; RESP 18; TEMP 98.7; O2SAT 94
[2024-08-31] MEDS ORDERED: CEPH250C PO (07:30)
--- NOTE | 2024-08-31 07:31 | DVHDS2 ---
Discharge Summary Date of Admission Aug 28, 2024 at 18:45 Date of Discharge: Aug 31, 2024 Labs/Diagnostic Data: Laboratory Results Test 08/31/24 04:32 08/30/24 13:35 08/30/24 05:22 08/28/24 21:26 Creatinine 0.47 mg/dL (0.550-1.02) Glomerular Filtration Rate Calc 94 mL/min (>90) Stool Occult Blood Negative (Negative) Stool Occult Blood Sample #3 (Negative) White Blood Count 6.9 10^3/uL (4.4-10.8) Red Blood Count 2.47 10^6/uL (4.0-5.20) Hemoglobin 7.9 g/dL (12.2-16.2) Hematocrit 23.5 % (36.0-46.0) Mean Corpuscular Volume 95.2 fL (80.0-100.0) Mean Corpuscular Hemoglobin 31.9 pg (28.0-32.0) Mean Corpuscular Hemoglobin Concent 33.5 g/dL (32.0-36.0) Red Cell Distribution Width 14.6 % (11.8-14.3) Platelet Count 311 10^3/uL (140-450) Mean Platelet Volume 7.9 fL (6.9-10.8) Neutrophils (%) (Auto) 68.8 % (37.0-80.0) Lymphocytes (%) (Auto) 20.0 % (10.0-50.0) Monocytes (%) (Auto) 9.1 % (0.0-12.0) Eosinophils (%) (Auto) 1.5 % (0.0-7.0) Basophils (%) (Auto) 0.6 % (0.0-2.0) Neutrophils # (Auto) 4.7 10 ^3/uL (1.6-8.6) Lymphocytes # (Auto) 1.4 10 ^3/uL (0.4-5.4) Monocytes # (Auto) 0.6 10 ^3/uL (0-1.3) Eosinophils # (Auto) 0.1 10 ^3/uL (0-0.8) Basophils # (Auto) 0 10 ^3/uL (0-0.2) Nucleated Red Blood Cells 0.2 % Sodium Level 141 mmol/L (136-145) Potassium Level 3.6 mmol/L (3.5-5.1) Chloride Level 108 mmol/L (98-107) Carbon Dioxide Level 23 mmol/L (20-31) Anion Gap 10 (5-15) Blood Urea Nitrogen 9 mg/dL (9-23) BUN/Creatinine Ratio 14.1 (10.0-20.0) Serum Glucose 90 mg/dL (74-106) Calcium Level 8.5 mg/dL (8.7-10.4) Total Bilirubin 0.3 mg/dL (0.2-1.0) Aspartate Amino Transferase (AST) 31 U/L (<34) Alanine Aminotransferase (ALT) 37 U/L (7-40) Alkaline Phosphatase 63 U/L (46-116) Total Protein 5.8 g/dL (5.7-8.2) Albumin 3.6 g/dL (3.2-4.8) Random Vancomycin Level 6.7 ug/mL (5-10) Lactic Acid Level 0.9 mmol/L (0.4-2.0) Test 08/28/24 19:58 08/28/24 17:37 08/28/24 16:15 Troponin I High Sensitivity 29 ng/L (</=34) Urine Color Dark-yellow (Yellow) Urine Clarity Turbid (Clear) Urine pH 5.5 (5.0-9.0) Urine Specific [place] 1.026 (1.001-1.035) Urine Protein Trace (Negative) Urine Ketones Negative (Negative) Urine Blood 1+ /uL (Negative) Urine Nitrite 2+ (Negative) Urine Bilirubin Negative (Negative) Urine Urobilinogen Normal mg/dL (Negative) Urine Leukocyte Esterase 2+ /uL (Negative) Urine RBC 6 /hpf (0 - 4) Urine Microscopic WBC 83 /HPF (0-5) Urine Squamous Epithelial Cells None seen /hpf (<5) Urine Bacteria Few /hpf (None Seen) Urine Mucus Few (None Seen) Urine Glucose Normal mg/dL (Normal) POC Glucose 117 mg/dl (70-106) Other Laboratory Tests 08/31/24 04:32 08/30/24 05:22 Brief Hx & Hospital Course: The patient is a 83-year-old female with past medical history of cholecystitis who presented to [facility] ED with complaint of generalized weakness. Patient reports she went to her primary care doctor's appointment today and was told she is tachycardic and has a fever. Patient was then sent to the emergency room. Patient also reports feeling weak with palpitations and occasional cough. Patient was seen and evaluated in the ED, laboratory data shows WBC 12.1, hemoglobin 9.4, hematocrit 28.6, platelets 411, sodium 138, potassium 3.6, BUN 18, creatinine 0.79, glucose 115, calcium 9.7, albumin 4.9, troponin 4, lactic acid 3.0, blood pressure 133/59, heart rate 98, temperature 99.1 F, O2 saturation 96% on room air. Chest x-ray show no acute cardiopulmonary disease, urinalysis positive for urinary tract infection. Patient was started on IV antibiotic regimen Rocephin, please see medication orders section in the computer. On my assessment, patient denied chest pain, no headache, no dizziness, no shortness of breath, no diaphoresis, no nausea, no vomiting, no chills. Patient was admitted for further evaluation and medical management. Final Diagnosis/Problems List see above Discharge Disposition: Home Discharge Instruct/Medications Diet: Regular Activity: No Restrictions, As Tolerated Discharge Statement: "Patient was advised to return to the ER or call 911 if any headaches, dizziness, shortness of breath, chest pain, abdominal pain, bleeding, fevers, or worsening of medical condition. Patient was counseled about treatment plan, medications, possible side effects, patientverbalized understanding. All questions were answered to the best of my ability. This discharge took greater then 30 minutes in planning, reviewing documentation, counseling the patient, and discussing with other team members." ASSESSMENT ASSESSMENT Assessment SHERRON POP DO Aug 31, 2024 07:31
[2024-08-31 08:00] VITALS: PULSE 80
[2024-08-31 09:00] VITALS: BP 125/55; PULSE 85; RESP 17; TEMP 98.8; O2SAT 95
--- NOTE | 2024-08-31 16:15 | DVHPN2 ---
Progress Note Date Seen: Aug 31, 2024 Resident Creating Document: BIRD WISE Medical Necessity Reason Pt with a Central, PICC or Fol: No Subjective Review of Systems Patient was seen today at bedside No acute complaint H&H stable Possible discharge today Objective vital signs Vital Sign Date Time Temp Pulse Resp B/P (MAP) Pulse Ox O2 Delivery O2 Flow Rate FiO2 08/31/24 09:00 98.8 85 17 125/55 (78) 95 98.8 08/31/24 08:00 Room Air* 0 21 Total Intake and Output 08/30/24 08/30/24 08/31/24 15:00 23:00 07:00 Intake Total 370 ml 1165 ml 950 ml Output Total 400 ml 400 ml Balance 370 ml 765 ml 550 ml medications Current Medications Medications Dose Ordered Sig/Taj Route Start Time Stop Time Status Last Admin Dose Admin Vancomycin HCl 100 ml @ 100 mls/hr ONCE IV 08/30/24 15:00 Cancel Vancomycin HCl 100 ml @ 200 mls/hr Q12H IV 08/30/24 15:00 UNV laboratory and microbiology Laboratory Tests 08/31/24 04:32 08/30/24 05:22 Test 08/30/24 05:22 Range/Units Serum Glucose 90 74-106 mg/dL Microbiology Date/Time Source Procedure Growth Status 08/28/24 17:37 Voided Urine Urine Culture - Final Escherichia coli Complete 08/28/24 16:47 Blood Blood Culture - Preliminary NO GROWTH AFTER 48 HOURS OF INCUBATION. Resulted Problem List/Assessment/Plan Problem List/Assessment/Plan Assessment and plan Symptomatic anemia Sepsis UTI Events As per patient she never had any colonoscopy or endoscopy No acute complaint H&H stable Possible discharge today Plan Patient was advised to follow up with Dr. Mart for possible colonoscopy and endoscopy Monitor CBC, any melena or hematochezia or hematemesis Patient can be discharged with oral antibiotic Other treatment as per primary care team Plan discussed with Dr. Evelyn Mart , nursing staff, Total time spent on patient evaluation, chart review, assessment and plan, discussion discussion >35 minutes Plan discussed with: Patient, Other (RN) BIRD WISE Aug 31, 2024 16:15
== END 2024-08-31 12:59 | disposition home or self-care (01) | DRG 872 ==
LOC: ER 15:53 → OVERFLOW 18:45 → TELE-CENTR 20:45
PROVIDERS: ADMIT Internal Medicine; ATTEND Internal Medicine
DX: A41.9 Sepsis, unspecified organism (principal); N30.00 Acute cystitis without hematuria; D64.9 Anemia, unspecified; Z90.49 Acquired absence of other specified parts of digestive tract
CPT/HCPCS: 36415; 71045; 80053; 80202; 81001; 82270; 82565; 82962; 83605; 84484; 85025; 86850; 86900; 86901; 87040; 87086; 87088; 87186; 93005; 96365; 99291; G0378; J0692